=== PATIENT | female | born 1935 | race Caucasian/White ===

== ENCOUNTER 2017-03-14 15:08 | Emergency (ER) | payer MEDICARE, BC ==
--- NOTE | ~2017-03-14 | EKG ---
PATIENT: SANJAY CELAYA UNIT #: [id number] Ventricular Rate: 59 BPM Atrial Rate: 59 BPM P-R Interval: 116 ms QRS Duration: 72 ms Q-T Interval: 434 ms QTC Calculation(Bezet): 429 ms P [place]: 16 degrees Calculated R [place]: 34 degrees Calculated T [place]: 53 degrees Diagnosis Line: Sinus bradycardia Diagnosis Line: Otherwise normal ECG Diagnosis Line: No previous ECGs available Diagnosis Line: Confirmed by BOB SPENCE MD ([id number]) on 03/16/2017 Diagnosis Line: 7:02:08 PM INTERPRETING MD: JORDY AMADOR
--- NOTE | ~2017-03-14 | CR72 ---
[facility] [[email or web address]]. [facility] A Service of [facility] RADIOLOGY TEXT RESULTS PATIENT: SANJAY CELAYA LOCATION: SED : 33 UNIT #: [id number] AGE: [address]: Loly Jurado MD SEX: F ORDER DR: [id number] [address] [address] [id number] E MR#: [id number] Acc #: [id number] NAME: SANJAY CELAYA : 1935 SEX: F STUDY DATE/TIME: 03/14/2017 17:23 UNIT: SED ROOM: STUDY DESCRIPTION: CR Chest Single View Portable Attending Physician: Loly Jurado M.D. Ordering Physician: Loly Jurado M.D. Primary Care Physician: Panda Roldan M.D. MEDICAL IMAGING REPORT This report is preliminary unless electronic signature is present. EXAM Portable chest. HISTORY Back pain, shoulder pain, and arm pain for 3 weeks. FINDINGS Portable view of the chest demonstrates moderate lung volumes satisfactory technique. No infiltrates or effusions. Heart, mediastinum, great vessels, bony thorax unremarkable for age. Hilar and parenchymal calcifications suggest old granulomatous disease. Dictated by... Shyann Schumacher M.D. THIS IS AN ELECTRONICALLY VERIFIED REPORT Shyann Schumacher M.D. at 03/15/2017 2:21 PM Tamia TD: 03/14/2017 22:14 JOB #: [id number] MEDICAL IMAGING REPORT Page 1 of 1
[~2017-03-14 15:08] MED LIST: AMBIEN10 MG PO; AMOXICILLIN500 M1 PO; ASPIRIN81 M1 PO; CYCLOBENZAPRINE5 MG PO; HYDROCODON-ACE1 EACH PO; JANUVIA50 MG PO; PREMARIN0.625 MG PO; PRILOSEC40 MG PO
[2017-03-14] MEDS ORDERED: METFORMIN (15:35)
[2017-03-14] MEDS ORDERED: PRINIVIL20 M1 PO (15:35)
[2017-03-14] MEDS ORDERED: GABAPENTIN400 MG (15:36)
[2017-03-14] MEDS ORDERED: ANTIDIARRHEAL2 MG PO (15:36)
[2017-03-14] MEDS ORDERED: FERROUS SULFAT140 MG (15:36)
[2017-03-14 16:33] LABS: BASOPHIL% 0.7 % (0-2.5); EOSINOPHIL# 0.1 X10e3 (0-0.7); EOSINOPHIL% 1.5 % (0.0-7.0); HEMATOCRIT 35.4 % (35.0-45.0); HEMOGLOBIN 11.7 gm/dL (12.0-16.0); LYMPHOCYTE# 2.2 X10e3 (1.0-3.5); LYMPHOCYTE% 37.1 % (17.0-45.0); MEAN CELL VOLUME 88.2 FL (83-96); MEAN CORPUSCULAR HEMOGLOBIN 29.1 PG (28-34); MEAN PLATELET VOLUME 8.5 FL (6.5-11.5); MONOCYTE# 0.4 X10e3 (0-1.0); MONOCYTE% 6.1 % (3.0-12.0); NEUTROPHIL# 3.2 X10e3 (1.5-7.1); NEUTROPHIL% 54.6 % (40-75); PLATELET COUNT 300 X10e3 (140-420); RED BLOOD COUNT 4.01 X10e (3.90-5.30); RED CELL DISTRIBUTION WIDTH 15.4 % (11.0-15.5); WHITE BLOOD COUNT 5.9 X10e3 (4.0-10.5)
[2017-03-14 16:38] LABS: POC - TROPONIN <0.05 ng/mL (<=0.05)
[2017-03-14 16:38] LABS: DIFF IND NO
[2017-03-14 16:50] LABS: ALBUMIN SERUM 4.4 g/dL (3.5-5.0); BILIRUBIN,TOTAL 0.3 mg/dL (0.2-2.0); BUN/CREATININE RATIO 16.15; CALCIUM SERUM 8.8 mg/dL (8.4-10.2); CREATININE SERUM 1.3 mg/dL (0.6-1.4); GLOM FILT RATE Estimated 38.2 mL/min (>60); POTASSIUM 4.1 mmol/L (3.5-5.1); PROTEIN TOTAL SERUM 7.6 g/dL (6.0-8.3)
== END 2017-03-14 18:30 | disposition home or self-care (01) ==
LOC: SED 15:08
PROVIDERS: Emergency Medicine
DX: S29.012A Strain of muscle and tendon of back wall of thorax, initial encounter (principal); E11.9 Type 2 diabetes mellitus without complications; I10 Essential (primary) hypertension; Z90.710 Acquired absence of both cervix and uterus; Z90.49 Acquired absence of other specified parts of digestive tract; Z88.8 Allergy status to other drugs, medicaments and biological substances; X58.XXXA Exposure to other specified factors, initial encounter
CPT/HCPCS: 36415; 71010; 80053; 82553; 83874; 84484; 85025; 93005; 99284; J1885